=== PATIENT | male | born 1980 | race African-American/Black ===

== ENCOUNTER 2018-05-03 10:30 | Emergency (ER) | payer OTHER ==
[~2018-05-03] VITALS: Ht 152.4 cm; Wt 70.8 kg
[2018-05-03 10:47] VITALS: TEMP 98.2
[2018-05-03 11:50] LABS: PLATELET COUNT 220 K/uL (142-355)
[2018-05-03 12:05] LABS: POTASSIUM 4.1 mmol/L (3.6-5.2); SODIUM 137 mmol/L (136-145)
[2018-05-03 12:48] VITALS: BP 112/62
== END 2018-05-03 12:48 | disposition home or self-care (01) ==
LOC: ED 10:30
DX: R07.89 Other chest pain (principal)
CPT/HCPCS: 36415; 80053; 80307; 81000; 84484; 85027; 93005; 99283